=== PATIENT | male | born 1950 | race African-American/Black ===

== ENCOUNTER 2021-01-27 20:22 | Inpatient (IN) ==
[2021-01-27 21:39] LABS: Basophils % 0.1 % (0.0-0.8); Eosinophils % 0.2 % (0.00-10.9); Hematocrit 25.3 VOL% (42.0-52.0); Hemoglobin 7.9 GM/DL (14.0-18.0); Immature Granulocytes % 2.4 %; Immature Granulocytes Absolute 0.29 #; Lymphocytes # 2.3 10*3/uL (1.4-4.0); Lymphocytes % 19.5 % (21.2-54.2); Mean Corpuscular HGB Conc 31.2 GM/DL (32-36); Mean Corpuscular Volume 89.7 FL (87-102); Mean Platelet Volume 9.8 FL (9.6-12.0); Monocytes % 5.7 % (1.7-12.7); NRBC # 0.04 10*3/uL; Neutrophils % 72.1 % (38.7-73.9); Platelet Count 229 T/CUMM (130-400); Red Blood Count 2.82 MC/CUMM (3.8-5.5); Red Cell Distribution Width 16.2 % (9.3-17.3)
[2021-01-27] MEDS ORDERED: SODIUM CHLORIDE 0.9% 1,000 ML IV STA (21:46)
[2021-01-27 21:47] LABS: INR 1.1; PT Patient Result 12.4 SECS (10.5-12.0); Partial Thromboplastin Time 27.1 SECS (23.9-33.8)
[2021-01-27 22:17] LABS: Albumin 2.3 G/DL (3.4-5.0); Bilirubin,Total 0.4 MG/DL (0.2-1.0); Calcium 9.8 MG/DL (8.5-10.1); Osmolality,Calculated 292.5 MOS/KG (273-304); Potassium 4.9 MMOL/L (3.5-5.1); Total Protein 5.6 G/DL (6.4-8.2)
[2021-01-27] MEDS ORDERED: FUROSEMIDE 20 MG/2 ML VIAL IV STA (22:20)
[2021-01-27] MEDS ORDERED: FUROSEMIDE 40 MG/4 ML VIAL ONE (22:28)
[2021-01-28] MEDS ORDERED: SODIUM CHLORIDE 0.9% 1,000 ML IV PRN ×2 (00:09→07:56)
[2021-01-28] MEDS ORDERED: ONDANSETRON 4 MG/2 ML VIAL IV PRN (00:13)
[2021-01-28] MEDS ORDERED: DEXTROSE 50% 25 GM/50 ML VIAL IV PRN (00:13)
[2021-01-28] MEDS ORDERED: BISACODYL 5 MG TABLET PO PRN (00:13)
[2021-01-28] MEDS ORDERED: GLUCAGON 1 MG VIAL IM PRN (00:13)
[2021-01-28 04:17] LABS: Bacteria,Urine Occasional /HPF (Few); Bilirubin,Urine Negative (Negative); Blood, Urine Negative (Negative); Glucose,Urine (UA) Negative (Negative); Hyaline Casts,Urine 33 /LPF (0-3); Ketones,Urine Negative (Negative); Mucus,Urine Occasional /LPF (Occasional); Nitrite,Urine Negative (Negative); Protein,Urine Negative; Squamous Epithelial Cell,Urine Occasional /HPF (0-10); Urine Appearance CLEAR (Clear); Urine Color Yellow (Yellow); Urine Specific Gravity 1.011 (1.001-1.035); Urine Urobilinogen < 2.0 EU/DL (0.2-1.0)
[2021-01-28 08:40] LABS: Basophils % 0.1 % (0.0-0.8); Eosinophils % 0.2 % (0.00-10.9); Hematocrit 26.8 VOL% (42.0-52.0); Hemoglobin 8.7 GM/DL (14.0-18.0); Immature Granulocytes % 3.3 %; Immature Granulocytes Absolute 0.39 #; Lymphocytes # 2.3 10*3/uL (1.4-4.0); Lymphocytes % 19.3 % (21.2-54.2); Mean Corpuscular HGB Conc 32.5 GM/DL (32-36); Mean Corpuscular Volume 87.6 FL (87-102); Mean Platelet Volume 9.4 FL (9.6-12.0); Monocytes % 5.9 % (1.7-12.7); NRBC # 0.05 10*3/uL; Neutrophils % 71.2 % (38.7-73.9); Platelet Count 203 T/CUMM (130-400); Red Blood Count 3.06 MC/CUMM (3.8-5.5); Red Cell Distribution Width 15.9 % (9.3-17.3); White Blood Count 11.8 T/CUMM (4-12)
[2021-01-28 08:57] LABS: Albumin 2.2 G/DL (3.4-5.0); Bilirubin,Total 0.4 MG/DL (0.2-1.0); Calcium 9.8 MG/DL (8.5-10.1); Osmolality,Calculated 287.8 MOS/KG (273-304); Potassium 4.9 MMOL/L (3.5-5.1); Total Protein 6.4 G/DL (6.4-8.2)
[2021-01-28] MEDS: methylPREDNISolone SOD SUC 40 MG/1 ML VIAL IV SCH (18:14)
[2021-01-28] MEDS: ATORVASTATIN 40 MG TABLET PO SCH (20:33)
[2021-01-29] MEDS: methylPREDNISolone SOD SUC 40 MG/1 ML VIAL IV SCH ×3 (00:54→19:44)
[2021-01-29 06:56] LABS: Basophils % 0.1 % (0.0-0.8); Eosinophils % 0.1 % (0.00-10.9); Hematocrit 28.7 VOL% (42.0-52.0); Hemoglobin 8.9 GM/DL (14.0-18.0); Immature Granulocytes % 3.5 %; Immature Granulocytes Absolute 0.45 #; Lymphocytes # 2.4 10*3/uL (1.4-4.0); Lymphocytes % 18.5 % (21.2-54.2); Mean Corpuscular Volume 89.7 FL (87-102); Mean Platelet Volume 9.6 FL (9.6-12.0); Monocytes % 2.5 % (1.7-12.7); NRBC # 0.03 10*3/uL; Neutrophils % 75.3 % (38.7-73.9); Platelet Count 214 T/CUMM (130-400); White Blood Count 12.8 T/CUMM (4-12)
[2021-01-29 07:10] LABS: Albumin 2.2 G/DL (3.4-5.0); Bilirubin,Total 0.7 MG/DL (0.2-1.0); Calcium 9.9 MG/DL (8.5-10.1); Potassium 4.8 MMOL/L (3.5-5.1); Total Protein 6.4 G/DL (6.4-8.2)
[2021-01-29] MEDS ORDERED: SODIUM CHLORIDE 0.9% 1,000 ML IV PRN (08:12)
[2021-01-29] MEDS ORDERED: diphenhydrAMINE CAP 50 MG CAPSULE PO ONE (09:12)
[2021-01-29] MEDS: allopurinoL 300 MG TABLET PO SCH (09:29)
[2021-01-29] MEDS: CHOLECALCIFEROL 5,000 UNIT TABLET PO SCH (09:29)
[2021-01-29] MEDS: ASPIRIN EC 81 MG TABLET PO SCH (09:29)
[2021-01-29] MEDS: GRANISETRON 1 MG/1 ML VIAL IV SCH (11:57)
[2021-01-29] MEDS: DEXAMETHASONE 10 MG/1 ML VIAL IV SCH (11:57)
[2021-01-29] MEDS: ETOPOSIDE 150 MG in SODIUM CHLORIDE 0.9% 500 ML IV SCH (13:06)
[2021-01-29] MEDS: ATORVASTATIN 40 MG TABLET PO SCH (21:59)
[2021-01-30] MEDS: methylPREDNISolone SOD SUC 40 MG/1 ML VIAL IV SCH ×3 (02:14→18:54)
[2021-01-30 07:14] LABS: Basophils % 0.1 % (0.0-0.8); Eosinophils % 0.1 % (0.00-10.9); Hematocrit 28.7 VOL% (42.0-52.0); Immature Granulocytes % 5.6 %; Immature Granulocytes Absolute 0.85 #; Lymphocytes % 12.8 % (21.2-54.2); Mean Corpuscular HGB Conc 31.4 GM/DL (32-36); Mean Platelet Volume 9.6 FL (9.6-12.0); Monocytes % 4.1 % (1.7-12.7); NRBC # 0.08 10*3/uL; Neutrophils % 77.3 % (38.7-73.9); Platelet Count 222 T/CUMM (130-400); Red Blood Count 3.26 MC/CUMM (3.8-5.5); White Blood Count 15.3 T/CUMM (4-12)
[2021-01-30 07:32] LABS: Albumin 2.1 G/DL (3.4-5.0); Bilirubin,Total 0.7 MG/DL (0.2-1.0); Calcium 10.3 MG/DL (8.5-10.1); Osmolality,Calculated 292.8 MOS/KG (273-304); Total Protein 6.4 G/DL (6.4-8.2)
[2021-01-30 07:33] LABS: Folate 4.96 NG/ML (5.38-24.0)
[2021-01-30 07:54] LABS: Band Neutrophils 1 % (0-10); Hypochromasia 1+; Lymphocytes 13 % (20-55); Microcytosis 1+; Nucleated Red Blood Cells 2 (0-5); Platelet Estimate Adequate; Segmented Neutrophils 83 % (50-85); Total Cells Counted 100
[2021-01-30 07:59] LABS: % Iron Saturation 52.2 % (18-50); Ferritin 2707.9 ng/ml (26-388)
[2021-01-30] MEDS ORDERED: SODIUM CHLORIDE 0.9% 1,000 ML IV PRN (08:23)
[2021-01-30] MEDS: allopurinoL 300 MG TABLET PO SCH (08:25)
[2021-01-30] MEDS: CHOLECALCIFEROL 5,000 UNIT TABLET PO SCH (08:25)
[2021-01-30] MEDS: ASPIRIN EC 81 MG TABLET PO SCH (08:25)
[2021-01-30] MEDS ORDERED: CARBOplatin 500 MG in SODIUM CHLORIDE 0.9% 250 ML IV ONE (12:00)
[2021-01-30] MEDS: DEXAMETHASONE 10 MG/1 ML VIAL IV SCH (12:24)
[2021-01-30] MEDS: GRANISETRON 1 MG/1 ML VIAL IV SCH (12:24)
[2021-01-30] MEDS: ETOPOSIDE 150 MG in SODIUM CHLORIDE 0.9% 500 ML IV SCH (15:11)
[2021-01-30] MEDS: ATORVASTATIN 40 MG TABLET PO SCH (21:46)
[2021-01-30] MEDS: ACETAMINOPHEN 325 MG TABLET PO PRN (21:50)
[2021-01-31] MEDS: methylPREDNISolone SOD SUC 40 MG/1 ML VIAL IV SCH ×3 (00:02→16:36)
[2021-01-31 06:10] LABS: Basophils % 0.1 % (0.0-0.8); Eosinophils % 0.1 % (0.00-10.9); Hematocrit 32.5 VOL% (42.0-52.0); Hemoglobin 10.1 GM/DL (14.0-18.0); Immature Granulocytes % 2.8 %; Immature Granulocytes Absolute 0.45 #; Lymphocytes # 1.5 10*3/uL (1.4-4.0); Lymphocytes % 9.6 % (21.2-54.2); Mean Corpuscular HGB Conc 31.1 GM/DL (32-36); Mean Corpuscular Volume 89.8 FL (87-102); Mean Platelet Volume 9.9 FL (9.6-12.0); Monocytes % 2.6 % (1.7-12.7); NRBC # 0.04 10*3/uL; Neutrophils % 84.8 % (38.7-73.9); Platelet Count 208 T/CUMM (130-400); Red Blood Count 3.62 MC/CUMM (3.8-5.5); Red Cell Distribution Width 15.8 % (9.3-17.3); White Blood Count 15.8 T/CUMM (4-12)
[2021-01-31 06:46] LABS: Albumin 2.2 G/DL (3.4-5.0); Bilirubin,Total 0.5 MG/DL (0.2-1.0); Calcium 10.1 MG/DL (8.5-10.1); Osmolality,Calculated 298.5 MOS/KG (273-304); Total Protein 6.3 G/DL (6.4-8.2)
[2021-01-31] MEDS: CHOLECALCIFEROL 5,000 UNIT TABLET PO SCH (09:48)
[2021-01-31] MEDS: ASPIRIN EC 81 MG TABLET PO SCH (09:48)
[2021-01-31] MEDS: allopurinoL 300 MG TABLET PO SCH (09:48)
[2021-01-31] MEDS ORDERED: ALBUTEROL/IPRATROPIUM 3 ML NEB RESP TX PRN (11:16)
[2021-01-31] MEDS ORDERED: TEMAZEPAM 7.5 MG CAPSULE PO PRN (13:26)
[2021-01-31] MEDS ORDERED: guaiFENesin 200 MG/10 ML UDCUP PO PRN (13:26)
[2021-01-31] MEDS ORDERED: ONDANSETRON 4 MG/2 ML VIAL IV PRN (13:26)
[2021-01-31] MEDS ORDERED: ALUMINUM/MAGNES/SIMETH MAX STR 30 ML UDCUP PO PRN (13:26)
[2021-01-31] MEDS ORDERED: MAGNESIUM HYDROXIDE SUSP 30 ML UDCUP PO PRN (13:26)
[2021-01-31] MEDS ORDERED: LACTULOSE 20 GM/30 ML UDCUP PO PRN (13:26)
[2021-01-31] MEDS ORDERED: MYLANTA/LIDO VISC 2:1 300 ML BOTTLE SWISH/SWAL PRN (13:26)
[2021-01-31] MEDS ORDERED: chlorproMAZINE INJ 25 MG in SODIUM CHLORIDE 0.9% 100 ML IV PRN (13:26)
[2021-01-31] MEDS ORDERED: MYLANTA/LIDO VISC 2:1 300 ML BOTTLE SWISH/SPIT PRN (13:26)
[2021-01-31] MEDS ORDERED: PROMETHAZINE INJ 25 MG in SODIUM CHLORIDE 0.9% 50 ML IV PRN (13:26)
[2021-01-31] MEDS ORDERED: chlorproMAZINE INJ 50 MG in SODIUM CHLORIDE 0.9% 100 ML IV PRN (13:26)
[2021-01-31] MEDS ORDERED: LOPERAMIDE 2 MG CAPSULE PO PRN ×2 (13:26)
[2021-01-31] MEDS ORDERED: diphenhydrAMINE CAP 25 MG CAPSULE PO PRN (13:26)
[2021-01-31] MEDS ORDERED: traMADol 50 MG TABLET PO PRN (13:26)
[2021-01-31] MEDS: DEXAMETHASONE 10 MG/1 ML VIAL IV SCH (13:34)
[2021-01-31] MEDS: GRANISETRON 1 MG/1 ML VIAL IV SCH (13:37)
[2021-01-31] MEDS: ETOPOSIDE 150 MG in SODIUM CHLORIDE 0.9% 500 ML IV SCH (15:14)
[2021-01-31] MEDS: ATORVASTATIN 40 MG TABLET PO SCH (22:18)
[2021-02-01] MEDS: methylPREDNISolone SOD SUC 40 MG/1 ML VIAL IV SCH ×3 (00:25→17:35)
[2021-02-01 05:22] LABS: Basophils % 0.1 % (0.0-0.8); Hematocrit 33.3 VOL% (42.0-52.0); Hemoglobin 10.2 GM/DL (14.0-18.0); Immature Granulocytes % 1.4 %; Immature Granulocytes Absolute 0.19 #; Lymphocytes % 7.6 % (21.2-54.2); Mean Corpuscular HGB Conc 30.6 GM/DL (32-36); Mean Corpuscular Volume 90.7 FL (87-102); Mean Platelet Volume 9.4 FL (9.6-12.0); Monocytes % 1.3 % (1.7-12.7); NRBC # 0.02 10*3/uL; Neutrophils % 89.6 % (38.7-73.9); Platelet Count 188 T/CUMM (130-400); Red Blood Count 3.67 MC/CUMM (3.8-5.5); White Blood Count 13.2 T/CUMM (4-12)
[2021-02-01 05:49] LABS: Albumin 2.4 G/DL (3.4-5.0); Bilirubin,Total 0.7 MG/DL (0.2-1.0); Calcium 9.8 MG/DL (8.5-10.1); Osmolality,Calculated 296.7 MOS/KG (273-304); Total Protein 6.3 G/DL (6.4-8.2)
[2021-02-01] MEDS: ALPRAZolam 0.25 MG TABLET PO PRN (09:11)
[2021-02-01] MEDS: ASPIRIN EC 81 MG TABLET PO SCH (09:11)
[2021-02-01] MEDS: CHOLECALCIFEROL 5,000 UNIT TABLET PO SCH (09:11)
[2021-02-01] MEDS: allopurinoL 300 MG TABLET PO SCH (09:11)
[2021-02-01] MEDS: GRANISETRON 1 MG/1 ML VIAL IV SCH (09:14)
[2021-02-01] MEDS: ALBUTEROL/IPRATROPIUM 3 ML NEB RESP TX SCH ×2 (14:45→20:00)
[2021-02-01] MEDS: ACETYLCYSTEINE 20% 800 MG/4 ML VIAL RESP TX SCH (14:45)
[2021-02-01] MEDS: ATORVASTATIN 40 MG TABLET PO SCH (20:59)
[2021-02-02] MEDS: ACETYLCYSTEINE 20% 800 MG/4 ML VIAL RESP TX SCH ×4 (00:28→23:40)
[2021-02-02] MEDS: ALBUTEROL/IPRATROPIUM 3 ML NEB RESP TX SCH ×5 (00:28→23:40)
[2021-02-02] MEDS: methylPREDNISolone SOD SUC 40 MG/1 ML VIAL IV SCH ×2 (01:13→09:46)
[2021-02-02] MEDS: ALPRAZolam 0.25 MG TABLET PO PRN (03:55)
[2021-02-02 06:55] LABS: Basophils % 0.4 % (0.0-0.8); Hemoglobin 11.2 GM/DL (14.0-18.0); Immature Granulocytes Absolute 0.09 #; Lymphocytes # 0.5 10*3/uL (1.4-4.0); Lymphocytes % 11.9 % (21.2-54.2); Mean Corpuscular Volume 87.7 FL (87-102); Mean Platelet Volume 9.9 FL (9.6-12.0); Monocytes % 0.9 % (1.7-12.7); Neutrophils % 84.8 % (38.7-73.9); Platelet Count 165 T/CUMM (130-400); Red Blood Count 3.99 MC/CUMM (3.8-5.5); White Blood Count 4.5 T/CUMM (4-12)
[2021-02-02 07:50] LABS: Calcium 9.9 MG/DL (8.5-10.1); Osmolality,Calculated 304.5 MOS/KG (273-304); Potassium 5.1 MMOL/L (3.5-5.1)
[2021-02-02 08:14] LABS: Band Neutrophils 22 % (0-10); Lymphocytes 11 % (20-55); Metamyelocytes 3 %; Platelet Estimate Normal; Segmented Neutrophils 64 % (50-85); Total Cells Counted 100
[2021-02-02 08:15] LABS: Anisocytosis 1+; Burr Cells 1+
[2021-02-02 08:16] LABS: Helmet Cells Slight
[2021-02-02] MEDS ORDERED: FUROSEMIDE 40 MG/4 ML VIAL IV SCH (09:00)
[2021-02-02] MEDS: GRANISETRON 1 MG/1 ML VIAL IV SCH (09:46)
[2021-02-02] MEDS: allopurinoL 300 MG TABLET PO SCH (09:47)
[2021-02-02] MEDS: ASPIRIN EC 81 MG TABLET PO SCH (09:47)
[2021-02-02] MEDS: CHOLECALCIFEROL 5,000 UNIT TABLET PO SCH (09:47)
[2021-02-02] MEDS: FOLIC ACID 1 MG TABLET PO SCH (09:48)
[2021-02-02] MEDS ORDERED: FUROSEMIDE 40 MG/4 ML VIAL IV ONE (10:14)
[2021-02-02] MEDS ORDERED: DEXAMETHASONE 10 MG/1 ML VIAL IV SCH (10:30)
[2021-02-02] MEDS ORDERED: SUCCINYLCHOLINE 200 MG/10 ML VIAL ONE (14:21)
[2021-02-02] MEDS ORDERED: ETOMIDATE 20 MG/10 ML VIAL IV ONE ×2 (14:21→14:56)
[2021-02-02] MEDS ORDERED: MIDAZOLAM 2 MG/2 ML VIAL IV ONE ×2 (14:44→15:14)
[2021-02-02] MEDS ORDERED: SUCCINYLCHOLINE 200 MG/10 ML VIAL IV ONE (14:56)
[2021-02-02] MEDS ORDERED: PHENYLEPHRINE DRIP 40 MG/250 ML PREMIX IV ONE (15:00)
[2021-02-02] MEDS: MIDAZOLAM 100 MG in SODIUM CHLORIDE 0.9% 80 ML IV PRN (15:03)
[2021-02-02] MEDS: SODIUM CHLORIDE 0.9% IV PRN ×2 (15:03→19:53)
[2021-02-02] MEDS: PHENYLEPHRINE IV PRN ×2 (15:03→19:53)
[2021-02-02] MEDS: fentaNYL INJ 1,250 MCG in SODIUM CHLORIDE 0.9% 225 ML IV PRN (15:03)
[2021-02-02 15:50] LABS: Allen Test Positive; Pt O2 Delivery Device Ventilator
[2021-02-02 15:51] LABS: ABG Base Excess -2.3 MMOL/L (-2.5-2.5); ABG HCO3 22.4 MMOL/L (20-26); ABG Oxygen Saturation 93.5 % (95-100); ABG PCO2 41.5 MM HG (35-48); ABG PH 7.354 (7.35-7.45); ABG PO2 75.2 MM HG (80-95); ABG TCO2 20.9 MMOL/L (23-27)
[2021-02-02] MEDS: FUROSEMIDE 40 MG/4 ML VIAL IV SCH (16:24)
[2021-02-02] MEDS: methylPREDNISolone SOD SUC 125 MG/2 ML VIAL IV SCH ×2 (16:25→22:39)
[2021-02-02 16:53] LABS: Bacteria,Urine Occasional /HPF (Few); Bilirubin,Urine Negative (Negative); Blood, Urine Negative (Negative); Glucose,Urine (UA) Negative (Negative); Hyaline Casts,Urine 27 /LPF (0-3); Ketones,Urine Negative (Negative); Mucus,Urine Occasional /LPF (Occasional); Nitrite,Urine Negative (Negative); Protein,Urine Negative; RBC,Urine 1 /HPF (0-4); Squamous Epithelial Cell,Urine Occasional /HPF (0-10); Urine Appearance Slightly Hazy (Clear); Urine Color Yellow (Yellow); Urine Urobilinogen < 2.0 EU/DL (0.2-1.0)
[2021-02-02] MEDS: MEROPENEM 500 MG in SODIUM CHLORIDE 0.9% 100 ML IV SCH (17:33)
[2021-02-02] MEDS: BUDESONIDE 0.5 MG/2 ML NEB RESP TX SCH (19:43)
[2021-02-02] MEDS: ATORVASTATIN 40 MG TABLET PO SCH (22:39)
[2021-02-03] MEDS: PHENYLEPHRINE DRIP 40 MG/250 ML PREMIX IV PRN ×3 (00:50→19:09)
[2021-02-03] MEDS: FUROSEMIDE 40 MG/4 ML VIAL IV SCH ×2 (02:43→13:50)
[2021-02-03 03:52] LABS: Basophils % 0.3 % (0.0-0.8); Hematocrit 31.8 VOL% (42.0-52.0); Hemoglobin 10.2 GM/DL (14.0-18.0); Immature Granulocytes % 15.1 %; Immature Granulocytes Absolute 0.46 #; Lymphocytes # 0.5 10*3/uL (1.4-4.0); Lymphocytes % 15.8 % (21.2-54.2); Mean Corpuscular HGB Conc 32.1 GM/DL (32-36); Mean Corpuscular Volume 88.6 FL (87-102); Mean Platelet Volume 9.7 FL (9.6-12.0); Monocytes % 0.7 % (1.7-12.7); Neutrophils % 68.1 % (38.7-73.9); Platelet Count 129 T/CUMM (130-400); Red Blood Count 3.59 MC/CUMM (3.8-5.5)
[2021-02-03 04:24] LABS: Band Neutrophils 3 % (0-10); Eosinophils 1 % (0-10); Lymphocytes 18 % (20-55); Segmented Neutrophils 76 % (50-85); Total Cells Counted 100
[2021-02-03 04:25] LABS: Hypochromasia 1+; Microcytosis 1+
[2021-02-03 04:26] LABS: Platelet Estimate Adequate
[2021-02-03 04:28] LABS: ABG Base Excess -2.3 MMOL/L (-2.5-2.5); ABG HCO3 22.5 MMOL/L (20-26); ABG Oxygen Saturation 97.4 % (95-100); ABG PCO2 37.2 MM HG (35-48); ABG PH 7.386 (7.35-7.45); ABG PO2 99.4 MM HG (80-95); ABG TCO2 20.3 MMOL/L (23-27); Allen Test Positive; Pt O2 Delivery Device Ventilator
[2021-02-03] MEDS: methylPREDNISolone SOD SUC 125 MG/2 ML VIAL IV SCH ×3 (05:16→17:29)
[2021-02-03] MEDS: MEROPENEM 500 MG in SODIUM CHLORIDE 0.9% 100 ML IV SCH ×2 (05:17→17:29)
[2021-02-03 05:54] LABS: Alanine Aminotransferase 47 U/L (16-61); Albumin 2.1 G/DL (3.4-5.0); Alkaline Phosphatase 164 U/L (45-117); Aspartate Amino Transferase 223 U/L (0-37); Bilirubin,Total < 0.39 MG/DL (0.2-1.0); Blood Urea Nitrogen 105 MG/DL (7-18); Calcium 8.9 MG/DL (8.5-10.1); Carbon Dioxide 21 MMOL/L (21-32); Estimated Glom Filtration Rate 47 ML/MIN; Glucose 107 MG/DL (74-106); Osmolality,Calculated 311.4 MOS/KG (273-304); Potassium 5.2 MMOL/L (3.5-5.1); Sodium 140 MMOL/L (136-145); Total Protein 5.3 G/DL (6.4-8.2)
[2021-02-03] MEDS: ACETYLCYSTEINE 20% 800 MG/4 ML VIAL RESP TX SCH (07:03)
[2021-02-03] MEDS: ALBUTEROL/IPRATROPIUM 3 ML NEB RESP TX SCH ×3 (07:03→18:00)
[2021-02-03] MEDS: BUDESONIDE 0.5 MG/2 ML NEB RESP TX SCH ×2 (07:03→18:00)
[2021-02-03] MEDS ORDERED: methylPREDNISolone SOD SUC 125 MG/2 ML VIAL IV SCH (07:30)
[2021-02-03] MEDS: CHOLECALCIFEROL 5,000 UNIT TABLET PO SCH (09:08)
[2021-02-03] MEDS: ASPIRIN CHEW 81 MG TABLET PO SCH (09:08)
[2021-02-03] MEDS: FOLIC ACID 1 MG TABLET PO SCH (09:08)
[2021-02-03] MEDS: GRANISETRON 1 MG/1 ML VIAL IV SCH (09:09)
[2021-02-03] MEDS: FILGRASTIM-SNDZ 300 MCG/0.5 ML SYRINGE SUBCUT SCH (09:10)
[2021-02-03] MEDS: fentaNYL INJ 1,250 MCG in SODIUM CHLORIDE 0.9% 225 ML IV PRN (19:40)
[2021-02-04] MEDS: methylPREDNISolone SOD SUC 125 MG/2 ML VIAL IV SCH ×5 (00:25→23:44)
[2021-02-04] MEDS: ALBUTEROL/IPRATROPIUM 3 ML NEB RESP TX SCH ×4 (01:05→18:18)
[2021-02-04] MEDS: PHENYLEPHRINE DRIP 40 MG/250 ML PREMIX IV PRN ×5 (01:38→23:05)
[2021-02-04 03:16] LABS: ABG Base Excess -3.5 MMOL/L (-2.5-2.5); ABG HCO3 21.4 MMOL/L (20-26); ABG PH 7.369 (7.35-7.45); ABG PO2 236.8 MM HG (80-95); ABG TCO2 22.6 MMOL/L (23-27)
[2021-02-04 03:43] LABS: Hematocrit 28.7 VOL% (42.0-52.0); Hemoglobin 8.8 GM/DL (14.0-18.0); Immature Granulocytes % 11.7 %; Immature Granulocytes Absolute 0.24 #; Lymphocytes # 0.5 10*3/uL (1.4-4.0); Lymphocytes % 22.8 % (21.2-54.2); Mean Corpuscular HGB Conc 30.7 GM/DL (32-36); Mean Corpuscular Volume 90.8 FL (87-102); Monocytes % 0.5 % (1.7-12.7); Platelet Count 107 T/CUMM (130-400); Red Blood Count 3.16 MC/CUMM (3.8-5.5); Red Cell Distribution Width 15.8 % (9.3-17.3); White Blood Count 2.1 T/CUMM (4-12)
[2021-02-04 04:09] LABS: Albumin 1.8 G/DL (3.4-5.0); Bilirubin,Total 0.4 MG/DL (0.2-1.0); Calcium 8.6 MG/DL (8.5-10.1); Osmolality,Calculated 318.4 MOS/KG (273-304); Potassium 4.9 MMOL/L (3.5-5.1); Total Protein 5.5 G/DL (6.4-8.2)
[2021-02-04 04:21] LABS: Band Neutrophils 1 % (0-10); Hypochromasia 1+; Lymphocytes 23 % (20-55); Microcytosis 1+; Ovalocytes Slight; Platelet Estimate Decreased; Segmented Neutrophils 76 % (50-85); Total Cells Counted 100
[2021-02-04] MEDS: MEROPENEM 500 MG in SODIUM CHLORIDE 0.9% 100 ML IV SCH ×2 (05:15→17:30)
[2021-02-04] MEDS: BUDESONIDE 0.5 MG/2 ML NEB RESP TX SCH ×2 (07:39→18:18)
[2021-02-04] MEDS ORDERED: SODIUM CHLORIDE 0.9% 1,000 ML IV PRN (07:56)
[2021-02-04] MEDS: FOLIC ACID 1 MG TABLET PO SCH (09:07)
[2021-02-04] MEDS: ASPIRIN CHEW 81 MG TABLET PO SCH (09:07)
[2021-02-04] MEDS: GRANISETRON 1 MG/1 ML VIAL IV SCH (09:08)
[2021-02-04] MEDS: FILGRASTIM-SNDZ 300 MCG/0.5 ML SYRINGE SUBCUT SCH (09:09)
[2021-02-04] MEDS: SODIUM CHLORIDE 0.9% 1,000 ML IV SCH ×2 (09:10→23:17)
[2021-02-04] MEDS: INSULIN REGULAR 100 UNIT/ML SUBCUT SCH ×3 (19:50→23:44)
[2021-02-04 23:59] VITALS: BP 118/61
[2021-02-05] MEDS: ALBUTEROL/IPRATROPIUM 3 ML NEB RESP TX SCH ×4 (02:03→19:25)
[2021-02-05 03:39] LABS: Hematocrit 33.6 VOL% (42.0-52.0); Hemoglobin 10.5 GM/DL (14.0-18.0); Immature Granulocytes % 18.1 %; Immature Granulocytes Absolute 0.25 #; Lymphocytes # 0.4 10*3/uL (1.4-4.0); Lymphocytes % 26.1 % (21.2-54.2); Mean Corpuscular HGB Conc 31.3 GM/DL (32-36); Mean Corpuscular Volume 91.6 FL (87-102); Mean Platelet Volume 10.1 FL (9.6-12.0); Monocytes % 1.4 % (1.7-12.7); Neutrophils % 54.4 % (38.7-73.9); Platelet Count 80 T/CUMM (130-400); Red Blood Count 3.67 MC/CUMM (3.8-5.5); Red Cell Distribution Width 15.7 % (9.3-17.3); White Blood Count 1.4 T/CUMM (4-12)
[2021-02-05] MEDS: PHENYLEPHRINE DRIP 40 MG/250 ML PREMIX IV PRN ×3 (04:02→18:01)
[2021-02-05 04:08] LABS: Lymphocytes 27 % (20-55); Segmented Neutrophils 72 % (50-85); Total Cells Counted 100
[2021-02-05 04:09] LABS: Platelet Estimate Decreased
[2021-02-05 04:10] LABS: Hypochromasia Slight; Microcytosis Slight
[2021-02-05 04:12] LABS: Albumin 1.9 G/DL (3.4-5.0); Bilirubin,Total 0.7 MG/DL (0.2-1.0); Calcium 8.4 MG/DL (8.5-10.1); Potassium 4.2 MMOL/L (3.5-5.1); Total Protein 5.7 G/DL (6.4-8.2)
[2021-02-05 04:28] LABS: ABG HCO3 20.4 MMOL/L (20-26); ABG Oxygen Saturation 99.7 % (95-100); ABG PCO2 39.5 MM HG (35-48); ABG PH 7.327 (7.35-7.45); ABG TCO2 18.2 MMOL/L (23-27)
[2021-02-05] MEDS: INSULIN REGULAR 100 UNIT/ML SUBCUT SCH ×3 (05:24→18:45)
[2021-02-05] MEDS: methylPREDNISolone SOD SUC 125 MG/2 ML VIAL IV SCH ×3 (05:25→18:00)
[2021-02-05] MEDS: MEROPENEM 500 MG in SODIUM CHLORIDE 0.9% 100 ML IV SCH ×2 (05:28→17:40)
[2021-02-05] MEDS: BUDESONIDE 0.5 MG/2 ML NEB RESP TX SCH ×2 (07:50→19:25)
[2021-02-05] MEDS: FOLIC ACID 1 MG TABLET PO SCH (10:33)
[2021-02-05] MEDS: ASPIRIN CHEW 81 MG TABLET PO SCH (10:33)
[2021-02-05] MEDS: FILGRASTIM-SNDZ 300 MCG/0.5 ML SYRINGE SUBCUT SCH (10:33)
[2021-02-05] MEDS: GRANISETRON 1 MG/1 ML VIAL IV SCH (10:34)
[2021-02-05] MEDS: SODIUM CHLORIDE 0.9% 1,000 ML IV SCH (13:30)
[2021-02-05] MEDS: fentaNYL INJ 1,250 MCG in SODIUM CHLORIDE 0.9% 225 ML IV PRN (13:51)
[2021-02-06] MEDS: ALBUTEROL/IPRATROPIUM 3 ML NEB RESP TX SCH ×4 (00:12→19:17)
[2021-02-06] MEDS: INSULIN REGULAR 100 UNIT/ML SUBCUT SCH ×4 (00:29→18:29)
[2021-02-06] MEDS: methylPREDNISolone SOD SUC 125 MG/2 ML VIAL IV SCH ×4 (00:58→18:30)
[2021-02-06] MEDS: PHENYLEPHRINE DRIP 40 MG/250 ML PREMIX IV PRN ×2 (03:50→23:26)
[2021-02-06] MEDS: SODIUM CHLORIDE 0.9% 1,000 ML IV SCH (04:33)
[2021-02-06 04:52] LABS: ABG Base Excess -6.4 MMOL/L (-2.5-2.5); ABG HCO3 18.6 MMOL/L (20-26); ABG Oxygen Saturation 93.9 % (95-100); ABG PCO2 34.8 MM HG (35-48); ABG PH 7.345 (7.35-7.45); ABG PO2 77.3 MM HG (80-95); ABG TCO2 19.6 MMOL/L (23-27); Allen Test Positive; Pt O2 Delivery Device Ventilator
[2021-02-06 05:49] LABS: Hematocrit 32.6 VOL% (42.0-52.0); Hemoglobin 10.5 GM/DL (14.0-18.0); Immature Granulocytes % 11.1 %; Immature Granulocytes Absolute 0.04 #; Lymphocytes # 0.2 10*3/uL (1.4-4.0); Lymphocytes % 55.6 % (21.2-54.2); Mean Corpuscular HGB Conc 32.2 GM/DL (32-36); Mean Corpuscular Volume 89.6 FL (87-102); Mean Platelet Volume 10.2 FL (9.6-12.0); Monocytes % 2.8 % (1.7-12.7); Neutrophils % 30.5 % (38.7-73.9); Red Blood Count 3.64 MC/CUMM (3.8-5.5); Red Cell Distribution Width 15.8 % (9.3-17.3)
[2021-02-06 05:54] LABS: Platelet Count 55 T/CUMM (130-400); White Blood Count 0.4 T/CUMM (4-12)
[2021-02-06 06:17] LABS: Bilirubin,Total 0.7 MG/DL (0.2-1.0); Calcium 8.5 MG/DL (8.5-10.1); Lymphocytes 58 % (20-55); Osmolality,Calculated 333.7 MOS/KG (273-304); Potassium 4.1 MMOL/L (3.5-5.1); Segmented Neutrophils 41 % (50-85); Total Cells Counted 100; Total Protein 5.5 G/DL (6.4-8.2)
[2021-02-06 06:18] LABS: Atypical Lymphocytes Few; Hypochromasia Slight; Microcytosis Slight; Ovalocytes Slight; Platelet Estimate Decreased
[2021-02-06] MEDS: MEROPENEM 500 MG in SODIUM CHLORIDE 0.9% 100 ML IV SCH ×2 (06:18→18:30)
[2021-02-06] MEDS: BUDESONIDE 0.5 MG/2 ML NEB RESP TX SCH ×2 (07:18→19:17)
[2021-02-06] MEDS: MIDAZOLAM 100 MG in SODIUM CHLORIDE 0.9% 80 ML IV PRN (09:17)
[2021-02-06] MEDS: ASPIRIN CHEW 81 MG TABLET PO SCH (09:18)
[2021-02-06] MEDS: GRANISETRON 1 MG/1 ML VIAL IV SCH (09:18)
[2021-02-06] MEDS: FILGRASTIM-SNDZ 300 MCG/0.5 ML SYRINGE SUBCUT SCH (09:18)
[2021-02-06] MEDS: FOLIC ACID 1 MG TABLET PO SCH (09:18)
[2021-02-06] MEDS: fentaNYL INJ 1,250 MCG in SODIUM CHLORIDE 0.9% 225 ML IV PRN (12:00)
[2021-02-07] MEDS: INSULIN REGULAR 100 UNIT/ML SUBCUT SCH ×4 (00:50→18:30)
[2021-02-07] MEDS: fentaNYL INJ 1,250 MCG in SODIUM CHLORIDE 0.9% 225 ML IV PRN (01:00)
[2021-02-07] MEDS: ALBUTEROL/IPRATROPIUM 3 ML NEB RESP TX SCH ×4 (01:28→19:36)
[2021-02-07] MEDS: methylPREDNISolone SOD SUC 125 MG/2 ML VIAL IV SCH ×4 (01:43→18:00)
[2021-02-07 03:43] LABS: Hematocrit 31.2 VOL% (42.0-52.0); Lymphocytes # 0.2 10*3/uL (1.4-4.0); Lymphocytes % 94.4 % (21.2-54.2); Mean Corpuscular HGB Conc 32.1 GM/DL (32-36); Mean Corpuscular Volume 88.9 FL (87-102); Mean Platelet Volume 9.3 FL (9.6-12.0); Neutrophils % 5.6 % (38.7-73.9); Red Blood Count 3.51 MC/CUMM (3.8-5.5); Red Cell Distribution Width 15.9 % (9.3-17.3)
[2021-02-07 03:46] LABS: Platelet Count 36 T/CUMM (130-400); White Blood Count 0.2 T/CUMM (4-12)
[2021-02-07 04:00] LABS: Alanine Aminotransferase 29 U/L (16-61); Albumin 1.8 G/DL (3.4-5.0); Alkaline Phosphatase 109 U/L (45-117); Aspartate Amino Transferase 88 U/L (0-37); Bilirubin,Total < 0.39 MG/DL (0.2-1.0); Blood Urea Nitrogen 149 MG/DL (7-18); Calcium 8.8 MG/DL (8.5-10.1); Carbon Dioxide 24 MMOL/L (21-32); Estimated Glom Filtration Rate 32 ML/MIN; Glucose 135 MG/DL (74-106); Osmolality,Calculated 338.7 MOS/KG (273-304); Potassium 5.2 MMOL/L (3.5-5.1); Sodium 145 MMOL/L (136-145); Total Protein 5.4 G/DL (6.4-8.2)
[2021-02-07 04:12] LABS: Atypical Lymphocytes Few; Lymphocytes 90 % (20-55); Ovalocytes Slight; Platelet Estimate Decreased; Segmented Neutrophils 10 % (50-85); Total Cells Counted 100
[2021-02-07 04:13] LABS: Hypochromasia Slight; Microcytosis Slight
[2021-02-07 04:54] LABS: ABG Base Excess -5.3 MMOL/L (-2.5-2.5); ABG HCO3 21.6 MMOL/L (20-26); ABG Oxygen Saturation 85.9 % (95-100); ABG PCO2 47.9 MM HG (35-48); ABG PH 7.271 (7.35-7.45); ABG PO2 58.3 MM HG (80-95); Allen Test Positive; Pt O2 Delivery Device Ventilator
[2021-02-07] MEDS: ACETAMINOPHEN 325 MG TABLET PO PRN ×2 (06:02→10:50)
[2021-02-07] MEDS: MEROPENEM 500 MG in SODIUM CHLORIDE 0.9% 100 ML IV SCH ×2 (06:02→17:45)
[2021-02-07] MEDS: PHENYLEPHRINE DRIP 40 MG/250 ML PREMIX IV PRN ×3 (06:49→16:20)
[2021-02-07] MEDS: BUDESONIDE 0.5 MG/2 ML NEB RESP TX SCH ×2 (07:39→19:36)
[2021-02-07] MEDS: ASPIRIN CHEW 81 MG TABLET PO SCH (09:17)
[2021-02-07] MEDS: FILGRASTIM-SNDZ 300 MCG/0.5 ML SYRINGE SUBCUT SCH (09:17)
[2021-02-07] MEDS: FOLIC ACID 1 MG TABLET PO SCH (09:17)
[2021-02-07] MEDS: GRANISETRON 1 MG/1 ML VIAL IV SCH (09:18)
[2021-02-07] MEDS: PHENYLEPHRINE INJ 160 MG in SODIUM CHLORIDE 0.9% 234 ML IV PRN (20:00)
[2021-02-07 22:29] LABS: Calcium 8.4 MG/DL (8.5-10.1); Osmolality,Calculated 341.8 MOS/KG (273-304)
[2021-02-07 23:10] LABS: ABG Base Excess -10.7 MMOL/L (-2.5-2.5); ABG HCO3 19.3 MMOL/L (20-26); ABG PCO2 59.9 MM HG (35-48); ABG PO2 65.8 MM HG (80-95); ABG TCO2 21.1 MMOL/L (23-27)
[2021-02-07 23:12] LABS: ABG PH 7.126 (7.35-7.45)
[2021-02-07] MEDS ORDERED: SODIUM BICARBONATE 50 MEQ/50 ML VIAL IV ONE ×2 (23:16→23:17)
[2021-02-07] MEDS ORDERED: CALCIUM CHLORIDE 1,000 MG/10 ML SYRINGE IV ONE ×2 (23:16→23:17)
[2021-02-07] MEDS ORDERED: SODIUM POLYSTYRENE SULFATE 15 GM/60 ML BOTTLE PO ONE (23:16)
[2021-02-07] MEDS ORDERED: NOREPINEPHRINE 4 MG/4 ML VIAL IV ONE (23:19)
[2021-02-07] MEDS: NOREPINEPHRINE 16 MG in SODIUM CHLORIDE 0.9% 234 ML IV PRN (23:25)
[2021-02-08] MEDS: ALBUTEROL/IPRATROPIUM 3 ML NEB RESP TX SCH ×2 (00:49→08:47)
[2021-02-08] MEDS: methylPREDNISolone SOD SUC 125 MG/2 ML VIAL IV SCH ×2 (00:58→06:42)
[2021-02-08] MEDS: INSULIN REGULAR 100 UNIT/ML SUBCUT SCH ×3 (01:07→17:52)
[2021-02-08] MEDS: PHENYLEPHRINE INJ 160 MG in SODIUM CHLORIDE 0.9% 234 ML IV PRN ×3 (03:00→13:30)
[2021-02-08 03:20] LABS: Hematocrit 38.8 VOL% (42.0-52.0); Hemoglobin 11.6 GM/DL (14.0-18.0); Lymphocytes # 0.3 10*3/uL (1.4-4.0); Lymphocytes % 97.1 % (21.2-54.2); Mean Corpuscular HGB Conc 29.9 GM/DL (32-36); Mean Corpuscular Volume 94.6 FL (87-102); Mean Platelet Volume 11.6 FL (9.6-12.0); Neutrophils % 2.9 % (38.7-73.9); Red Cell Distribution Width 16.3 % (9.3-17.3)
[2021-02-08 03:22] LABS: ABG Base Excess -9.5 MMOL/L (-2.5-2.5); ABG HCO3 16.9 MMOL/L (20-26); ABG Oxygen Saturation 94.3 % (95-100); ABG PCO2 51.7 MM HG (35-48); ABG TCO2 17.8 MMOL/L (23-27); Allen Test Positive; Pt O2 Delivery Device Ventilator
[2021-02-08 03:23] LABS: ABG PH 7.181 (7.35-7.45)
[2021-02-08 03:23] LABS: Platelet Count 17 T/CUMM (130-400); White Blood Count 0.4 T/CUMM (4-12)
[2021-02-08 03:58] LABS: Albumin 1.5 G/DL (3.4-5.0); Bilirubin,Total 0.9 MG/DL (0.2-1.0); Calcium 8.4 MG/DL (8.5-10.1); Total Protein 5.8 G/DL (6.4-8.2)
[2021-02-08 04:00] LABS: Potassium 6.1 MMOL/L (3.5-5.1)
[2021-02-08] MEDS: ACETAMINOPHEN 325 MG TABLET PO PRN (04:10)
[2021-02-08] MEDS ORDERED: SODIUM BICARBONATE 50 MEQ/50 ML SYRINGE IV ONE (04:33)
[2021-02-08] MEDS ORDERED: CALCIUM CHLORIDE 1,000 MG/10 ML SYRINGE IV ONE (04:33)
[2021-02-08] MEDS ORDERED: INSULIN REGULAR 100 UNIT/ML IV ONE (04:33)
[2021-02-08 06:34] LABS: Lymphocytes 98 % (20-55); Ovalocytes 1+; Platelet Estimate Decreased; Segmented Neutrophils 2 % (50-85); Total Cells Counted 100
[2021-02-08 06:35] LABS: Atypical Lymphocytes Few; Reactive Lymphocytes Few
[2021-02-08] MEDS: MEROPENEM 500 MG in SODIUM CHLORIDE 0.9% 100 ML IV SCH (06:42)
[2021-02-08] MEDS ORDERED: NOREPINEPHRINE 4 MG/4 ML VIAL IV ONE (07:44)
[2021-02-08] MEDS: NOREPINEPHRINE 16 MG in SODIUM CHLORIDE 0.9% 234 ML IV PRN ×3 (07:45→13:35)
[2021-02-08] MEDS: FOLIC ACID 1 MG TABLET PO SCH (08:10)
[2021-02-08] MEDS: GRANISETRON 1 MG/1 ML VIAL IV SCH (08:10)
[2021-02-08] MEDS: ASPIRIN CHEW 81 MG TABLET PO SCH (08:10)
[2021-02-08] MEDS: FILGRASTIM-SNDZ 300 MCG/0.5 ML SYRINGE SUBCUT SCH (08:11)
[2021-02-08 08:25] LABS: Albumin 1.5 G/DL (3.4-5.0); Bilirubin,Total 0.6 MG/DL (0.2-1.0); Calcium 8.4 MG/DL (8.5-10.1); Osmolality,Calculated 344.8 MOS/KG (273-304); Potassium 5.9 MMOL/L (3.5-5.1); Total Protein 5.8 G/DL (6.4-8.2)
[2021-02-08] MEDS: BUDESONIDE 0.5 MG/2 ML NEB RESP TX SCH (08:47)
[2021-02-08] MEDS: fentaNYL INJ 1,250 MCG in SODIUM CHLORIDE 0.9% 225 ML IV PRN (14:15)
== END 2021-02-08 15:55 | disposition expired | DRG 207 ==
LOC: N.ED 20:22 → SUATTDRO 01-28 00:04 → N.EDINP 01-28 00:04 → N.4E 01-28 02:00 → N.ICU 02-02 14:55
PROVIDERS: ADMIT Internal Medicine; ATTEND Internal Medicine